=== PATIENT | male | born 1945 | race Caucasian/White ===

== ENCOUNTER → 2016-08-28 | Outpatient (CLI) | payer OTHER ==
[~2016-08-28] MED LIST: REGADENOSON 0.4 MG/5 ML DISP.SYRIN. IV ONE
--- NOTE | 2016-08-28 13:14 | RAD ---
APPROVED REPORT Test Type: Pharmacological Stress Nurse/Tech: Zoila Regalado Test Indications: Tachycardia Cardiac History: None Resting Heart Rate: 75 bpm Resting Blood Pressure: 131/76mmHg Pretest Chest Pain: No chest pain Pharm. Details Pharmacologic stress testing was performed using 0.4mg per 5ml of regadenoson given intravenously ove r 7-10 seconds. POST EXERCISE Max HR: 137 bpm Max Blood Pressure: 142/67mmHg Blood Pressure response to exercise: Normal blood pressure response during stress. Heart Rate response to exercise: Normal Chest Pain: No. Arrhythmia: No. ST Change: No. INTERPRETATION Stress EKG Conclusion: Baseline EKG showed sinus rhythm. No ischemic changes at peak stress. No arr hythmias. Imaging Protocol IMAGE PROTOCOL: Rest Tc-99m/stress Tc-99m 1 day Rest: Stress: Viability: Radiopharm.Tc99m ZledrzraxVt10v Sestamibi [id number] 33mCi Duration 20min. 15min. Img Date 08/28/2016 08/28/2016 Inj-Img [id number]. 45min. Rest Admin Site:IV - Right AntecubitalAdministrator: RT Yaima (R)(N) Stress Admin Site: IV - Right AntecubitalAdministrator: RT Yaima (R)(N) STRESS DATA End Diast. Vol.83.0mlAv. Heart Rate93.0bpm LVEDV index BSA1.0mlCardiac Output0.1L/min End Syst. Vol.20.0mlCO Index BSA5.9L/min LVESV index BSA0.0mlMyocardial Vphv989.0g Eject. Dwsozvem82.0% Stress Rates Pk. Fill Rate4.36EDV/secLVtime Pk. Fill 183.10msec Pk. Empty Rate5.23ESV/secLVtime Pk. Xnkfn194.85msec / Pk. Fill1.11EDV/sec Stress Scores Regional WT1.00Summed WT3.00 Regional WM0.00Summed WM0.00 Study quality was good. Left Ventricular size was Normal at Rest and Stress. Lung uptake was Normal. Left Ventricular ejection fraction is 76%. The rest and stress images show normal perfusion, normal contraction and thickening. LV Perf. Quant 17 Seg. SSS4.00 17 Seg. SRS9.00 17 Seg. SDS0.00 Stress Defect Extent (% LAD)0.00Rest Defect Extent (% LAD)10.60Rev. Defect Extent (% LAD)0.00 Stress Defect Extent (% LCX) 36.30Rest Defect Extent (% LCX)42.50Rev. Defect Extent (% LCX)1.30 Stress Defect Extent (% RCA)0.00Rest Defect Extent (% RCA)0.00Rev. Defect Extent (% RCA)0.00 Stress Defect Extent (% LAVONNE)8.30Rest Defect Extent (% LAVONNE)15.40Rev. Defect Extent (% LAVONNE)0.20 Conclusion 1. Regadenoson cardioisotope stress test did not show any evidence of ischemia or infarct. 2. Normal left ventricular systolic function with ejection fraction calculated at 76%. 3. Low risk for cardiac events.
== END | disposition home or self-care (01) ==
LOC: NM 07:04
PROVIDERS: ATTEND Family Medicine
DX: R00.0 Tachycardia, unspecified (principal)
CPT/HCPCS: 78452; 93017; 96374; 96375; 96376; A9500; J2785

== ENCOUNTER → 2017-12-11 | Outpatient (CLI) | payer OTHER ==
[~2017-12-11] MED LIST changes: +BUPIVACAINE MPF 0.25% 30 ML VIAL. ONE; +LIDOCAINE 1% PF 2 ML VIAL. ONE; -REGADENOSON 0.4 MG/5 ML DISP.SYRIN. IV ONE; +methylPREDNISolone ACETATE 40 MG/ML VIAL. ONE
== END | disposition home or self-care (01) ==
LOC: SURG 10:50
PROVIDERS: ATTEND Anesthesiology
DX: M19.011 Primary osteoarthritis, right shoulder (principal); I10 Essential (primary) hypertension; F43.10 Post-traumatic stress disorder, unspecified; Z98.890 Other specified postprocedural states; Z79.899 Other long term (current) drug therapy
CPT/HCPCS: 20605; 20610; 77002; J1030; J3490